=== PATIENT | male | born 1995 | race American Indian/Alaskan Native ===

== ENCOUNTER 2019-06-27 11:32 | Emergency (ER) | payer SELFPAY ==
[2019-06-27 11:52] VITALS: BP 126/90
--- NOTE | 2019-06-27 11:53 | Emergency Department Report ---
Chief Complaint: Upper Respiratory Infection Stated Complaint: FLU SX Time Seen by Provider: 06/27/19 11:47 - HPI History of Present Illness: states he has had flu like symptoms for three days states he has had a couple of episodes of vomiting, subjective fever, cough, diarrhea no sore throat, no ear pain, no SOB no PMHx no allergies to meds states he smokes tobacco and marijuana pt is tolerating PO intake, drinking a gatorade currently vitals are normal on exam: no acute distress, non toxic appearing normal orophayrnx mucus membranes are moist normal TMs and canals normal breath sounds bilaterally without w/r/r normal heart sounds, no gallops or rubs no murmurs symptoms and examination consistent with a viral like illness could be related to influenza but patient is out of the 48 hour range for tamiflu, and does not have a fever does not appear toxic or dehydrated pt is presenting with a non medical emergency at this time medical screening examination performed and there is no threat to life or limb discussed strict return precautions with pt pt will be referred to a primary care provider - Exam Vital Signs: Vital Signs 06/27/19 11:50 Temperature 98.5 F Pulse Rate 87 Respiratory 18 Rate Blood Pressure 126/90 O2 Sat by Pulse 98 Oximetry MSE screening note: Focused history and physical exam performed. ED Disposition for MSE Clinical Impression: Viral illness Disposition: Z- MED SCREENING EXAM-LEFT Is pt being admited?: No Does the pt Need Aspirin: No Condition: Stable Instructions: Viral Syndrome (ED) Additional Instructions: please increase your fluid intake over the next several days. may alternate tylenol then ibuprofen every 4 hours as needed for a fever or body aches. may take over the counter cough/cold medication such as mucinex or robitussin. follow up with a primary care doctor in the next 2-3 days. return to the emergency room for any new or worsening symptoms. Referrals: SONAL SINGLETON MD [Staff Physician] - 2-3 Days [facility] [Outside] - 2-3 Days [facility] [Outside] - 2-3 Days Time of Disposition: 11:52 Print Language: [place]
== END 2019-06-27 12:37 | disposition left against medical advice (07) ==
LOC: ED 11:32
DX: B34.9 Viral infection, unspecified (principal)
CPT/HCPCS: 99281